=== PATIENT | male | born 1980 | race Caucasian/White ===

== ENCOUNTER 2018-05-12 06:38 | Emergency (ER) | payer OTHER ==
[~2018-05-12] VITALS: Ht 182.9 cm; Wt 81.7 kg
[2018-05-12 06:43] VITALS: BP 146/102
[2018-05-12] MEDS ORDERED: CORTISPORIN OTI10 M2 OTIC (06:55)
[2018-05-12] MEDS ORDERED: NAPROSYN500 MG PO (06:55)
== END 2018-05-12 08:21 | disposition home or self-care (01) ==
LOC: ER 06:38
DX: H60.93 Unspecified otitis externa, bilateral (principal); F17.210 Nicotine dependence, cigarettes, uncomplicated